=== PATIENT | female | born 1995 | race Caucasian/White ===

== ENCOUNTER 2016-10-24 19:13 | Emergency (ER) | payer OTHER ==
[~2016-10-24] VITALS: Ht 163.8 cm; Wt 62.9 kg
[2016-10-24 19:23] VITALS: TEMP 36.7; O2SAT 99; Ht 163.8 cm; Wt 62.9 kg
[2016-10-24 20:03] LABS: BASO % 0.2 %; BASO ABS # 0.02 K/uL (0-0.2); COMPLETE YES; EOS % 1.8 %; IG% 0.2 %; LYMPH % 27.4 %; LYMPH ABS # 2.33 K/uL (1.2-3.4); MEAN CELL VOLUME 84.7 fL (80-100); MEAN CORPUSCULAR HEMOGLOBIN 29.5 pg (25-34); MEAN CORPUSCULAR HGB CONC 34.9 g/dl (32-36); MEAN PLATELET VOLUME 9.6 fL (7.4-10.4); MONO % 5.1 %; NEUT % 65.3 %; PLATELET COUNT 281 K/uL (130-400); RED BLOOD COUNT 4.84 M/uL (4.2-5.4); WHITE BLOOD COUNT 8.49 K/uL (4.8-10.8)
--- NOTE | 2016-10-24 20:17 | DIAGNOSTIC IMAGING REPORT ---
HEAD CT NONCONTRAST CT DOSE: 1151.75 mGy.cm HISTORY: Headache seizure TECHNIQUE: Multiaxial CT images of the head were performed without the use of intravenous contrast. Comparison: None. Findings: The paranasal sinuses and mastoid air cells are clear. The calvarium and skull base are intact. The ventricles and sulci are within normal limits. There is no mass, hematoma, midline shift, or acute infarct. Impression: No acute intracranial abnormality. Electronically signed by: Tray Barber M.D. 10/24/2016 8:16 PM Dictated Date/Time: 10/24/2016 8:15 PM
[2016-10-24 20:24] LABS: URINE APPEARANCE CLEAR (CLEAR); URINE BILIRUBIN NEG (NEG); URINE COLOR YELLOW; URINE EPITHELIAL CELL AUTO >30 /lpf (0-5); URINE NITRITE NEG (NEG); URINE SPECIFIC GRAVITY 1.015 (1.000-1.030); UROBILINOGEN NEG (NEG); ZZUR CULT IF INDIC CLEAN CATCH YES
[2016-10-24 20:24] LABS: BUN/CREATININE RATIO 20.8 (10-20); CREATININE 0.78 mg/dl (0.60-1.20); POTASSIUM 3.8 mmol/L (3.5-5.1)
[2016-10-24 20:27] LABS: MANUAL MICROSCOPIC REQUIRED? NO; REVIEW REQ? NO
--- NOTE | 2016-10-24 21:13 | EMERGENCY ROOM VISIT NOTE ---
History Report prepared by Rob: Flor Rainey Under the Supervision of: Dr. Nick Peralta M.D. First contact with patient: 21:00 Chief Complaint: SEIZURE Stated Complaint: SEIZURE Nursing Triage Summary: pt was exercising at the fitness center on campus. per EMS a bystander witnessed pt have a siezure, lasting about 1 minute. pt was post ictal for EMS. pt arrives alert, oriented. pt reports seizure 1 year ago but has had no follow up since that time. pt takes no medications. pt reports she felt dizzy and if the room was spinning just prior to episode. pt did not hit her head. per EMS pt was lying on the floor doing exercises when seizure happened. History of Present Illness The patient is a 21 year old female who presents to the Emergency Room with complaints of sudden seizure like activity that occurred prior to arrival. She currently rates her discomfort as a 1/10 in severity. The patient states that throughout the last week she didn't sleep much, noting that this weekend she felt fatigued so she slept a lot. She states that she has a history of a seizure in the past, but states that she never had follow up after the incident. The patient states that today she was at the gym working out when she started to feel sick, nauseous, and dizzy. She states that she didn't feel right so she sat down at the machine. The patient states that next thing she new someone was trying to assist her. She states that she was post ictal after the incident. The patient denies any chest pain or shortness of breath prior to the incident. She denies losing any control of her bowel or bladder and denies biting her tongue. The patient states that she ate normally today, but states that she is hungry now. Source of History: patient, friend Onset: prior to arrival Position: other (global) Symptom Intensity: 1/10 Quality: other (seizure like activity) Timing: other (sudden) Associated Symptoms: + nausea, No SOB, No chest pain Note: Associated Symptoms: post ictal, dizziness Review of Systems See HPI for pertinent positives & negatives. A total of 10 systems reviewed and were otherwise negative. Past Medical & Surgical Medical Problems: (1) Seizure Old medical records were attempted to be reviewed but there are no old records at this hospital. Nurse's notes were reviewed and I agree with. Family History no pertinent family history stated. Social History Smoking Status: Current Some Day Smoker Drug Use: none Marital Status: single Occupation Status: [employer] student Current/Historical Medications No Active Prescriptions or Reported Meds Allergies Coded Allergies: No Known Allergies (Unverified , 10/24/16) Physical Exam Vital Signs Date Time Temp Pulse Resp B/P Pulse Ox O2 Delivery O2 Flow Rate FiO2 10/24/16 21:44 75 18 107/62 99 10/24/16 20:13 86 20 107/69 100 Room Air 10/24/16 19:27 81 10/24/16 19:23 36.7 78 21 105/58 100 Room Air 10/24/16 19:23 99 Room Air Physical Exam General: Well developed well nourished, non-ill appearing young female in no acute distress, breathing comfortably on room air. Normal speech HEENT: Normal cephalic atraumatic. Pupils are equal round and reactive to light. No nystagmus. Extraocular movements are intact. Oropharynx is pink with moist mucous membranes. No swelling of the mouth lips or tongue. Neck: Supple with a midline trachea. No meningeal signs or stiffness, no JVD or bruits. No Stridor. Chest: Clear to auscultation bilaterally. No wheezes or rhonchi. No increased work of breathing. Heart: regular rate and rhythm. Abdomen: Soft nontender, nondistended without rebound guarding or rigidity. Extremities: No cyanosis clubbing or edema. No calf tenderness or assymetry Spine/Back. Non tender to palpation. No CVA tenderness Skin: Good turgor without rashes. Neurologic exam: Cranial nerves two through 12 are intact. Motor and sensation are intact and symmetrical throughout. No tremor. Medical Decision & Procedures ER Provider Diagnostic Interpretation: CT results as stated below per my review and radiologist interpretation: HEAD CT NONCONTRAST CT DOSE: 1151.75 mGy.cm HISTORY: Headache seizure TECHNIQUE: Multiaxial CT images of the head were performed without the use of intravenous contrast. Comparison: None. Findings: The paranasal sinuses and mastoid air cells are clear. The calvarium and skull base are intact. The ventricles and sulci are within normal limits. There is no mass, hematoma, midline shift, or acute infarct. Impression: No acute intracranial abnormality. Electronically signed by: Tray Barber M.D. 10/24/2016 8:16 PM Dictated Date/Time: 10/24/2016 8:15 PM Laboratory Results 10/24/16 19:45 Red Blood Count 4.84, Mean Corpuscular Volume 84.7, Mean Corpuscular Hemoglobin 29.5, Mean Corpuscular Hemoglobin Concent 34.9, Mean Platelet Volume 9.6, Neutrophils (%) (Auto) 65.3, Lymphocytes (%) (Auto) 27.4, Monocytes (%) (Auto) 5.1, Eosinophils (%) (Auto) 1.8, Basophils (%) (Auto) 0.2, Neutrophils # (Auto) 5.54, Lymphocytes # (Auto) 2.33, Monocytes # (Auto) 0.43, Eosinophils # (Auto) 0.15, Basophils # (Auto) 0.02 10/24/16 19:45 Test 10/24/16 19:43 10/24/16 19:45 Urine Color YELLOW Urine Appearance CLEAR (CLEAR) Urine pH 8.0 (4.5-7.5) Urine Specific [place] 1.015 (1.000-1.030) Urine Protein NEG (NEG) Urine Glucose (UA) NEG (NEG) Urine Ketones NEG (NEG) Urine Occult Blood NEG (NEG) Urine Nitrite NEG (NEG) Urine Bilirubin NEG (NEG) Urine Urobilinogen NEG (NEG) Urine Leukocyte Esterase TRACE (NEG) Urine WBC (Auto) 1-5 /hpf (0-5) Urine RBC (Auto) 0-4 /hpf (0-4) Urine Hyaline Casts (Auto) 1-5 /lpf (0-5) Urine Epithelial Cells (Auto) >30 /lpf (0-5) Urine Bacteria (Auto) 1+ (NEG) Urine Test NEG (NEG) White Blood Count 8.49 K/uL (4.8-10.8) Red Blood Count 4.84 M/uL (4.2-5.4) Hemoglobin 14.3 g/dL (12.0-16.0) Hematocrit 41.0 % (37-47) Mean Corpuscular Volume 84.7 fL (80-100) Mean Corpuscular Hemoglobin 29.5 pg (25-34) Mean Corpuscular Hemoglobin Concent 34.9 g/dl (32-36) Platelet Count 281 K/uL (130-400) Mean Platelet Volume 9.6 fL (7.4-10.4) Neutrophils (%) (Auto) 65.3 % Lymphocytes (%) (Auto) 27.4 % Monocytes (%) (Auto) 5.1 % Eosinophils (%) (Auto) 1.8 % Basophils (%) (Auto) 0.2 % Neutrophils # (Auto) 5.54 K/uL (1.4-6.5) Lymphocytes # (Auto) 2.33 K/uL (1.2-3.4) Monocytes # (Auto) 0.43 K/uL (0.11-0.59) Eosinophils # (Auto) 0.15 K/uL (0-0.5) Basophils # (Auto) 0.02 K/uL (0-0.2) RDW Standard Deviation 38.1 fL (36.4-46.3) RDW Coefficient of Variation 12.3 % (11.5-14.5) Immature Granulocyte % (Auto) 0.2 % Immature Granulocyte # (Auto) 0.02 K/uL (0.00-0.02) Anion Gap 10.0 mmol/L (3-11) Est Creatinine Clear Calc Drug Dose 101.4 ml/min Estimated GFR () 126.8 Estimated GFR (Non- 109.4 BUN/Creatinine Ratio 20.8 (10-20) Calcium Level 9.0 mg/dl (8.5-10.1) Total Bilirubin 0.3 mg/dl (0.2-1) Aspartate Amino Transf (AST/SGOT) 15 U/L (15-37) Alanine Aminotransferase (ALT/SGPT) 14 U/L (12-78) Alkaline Phosphatase 49 U/L (45-117) Total Protein 8.6 gm/dl (6.4-8.2) Albumin 4.3 gm/dl (3.4-5.0) Globulin 4.3 gm/dl (2.5-4.0) Albumin/Globulin Ratio 1.0 (0.9-2) Laboratory studies as stated above per my review. ECG Indication: syncope, other (seizure) Rate (beats per minute): 77 Rhythm: normal sinus Findings: no acute ischemic change, other (sinus arrhythmia, no evidence of brugata syndrome, no prolonged QT) ED Course 2104: Past medical records reviewed. The patient was evaluated in room B9, and a complete history and physical examination were performed. 2121: I discussed the patients case with Dr. Santiago, Neurology. He does not believe that the patient needs to be started on medications at this time, but feels that the patient should be followed up as an outpatient. 2133: I reevaluated the patient and she is resting comfortably. I discussed the exam findings with her and I discussed the treatment plan. She verbalized complete understanding and agreement. She is ready to go home. Medical Decision Differentials include, but are not limited to; seizure, syncope, arrhythmia, electrolyte or metabolic abnormality. This patient comes in as described above. She has not slept much because she was studying and had a seizure like episode. She did feel dizzy prior to this I tried to sit down and either passed out or had a seizure. She may have been postictal. She looks great now she has normal neurologic exam. Multiple blood testing was obtained. She's no acute electrolyte or metabolic abnormalities. She has nothing to suggest infection or sepsis. A CAT scan of her head was unremarkable. EKG does not suggest acute coronary syndrome or arrhythmia. She is not . She feels good and would like to go home she had another similar episode about a year ago but talking to the patient, it was not clearly a seizure either. It may be that she does have a seizure disorder. I did discuss case with Dr. Santiago and he agrees to not start her medications at present but have further workup first. Our case management team to try to get her in with our seizure neurologist this week. They will call her. The patient does not drive. I told her not to do any activities where she could hurt herself or others of having a seizure and rest and drink plenty fluids. Ensure she sleeps well and return if : recurrence of symptoms, numbness or weakness, chest pain, shortness of breath, fever chills, any new problems or concerns. She was happy with the plan and discharged to home. Consults Time Called: [id number] Consulting Physician: Dr. Santiago, Neurology Returned Call: [phone] I discussed the patients case with Dr. Santiago, Neurology. He does not believe that the patient needs to be started on medications at this time, but feels that the patient should be followed up as an outpatient. Impression Primary Impression: Seizure Scribe Attestation The scribe's documentation has been prepared under my direction and personally reviewed by me in its entirety. I confirm that the note above accurately reflects all work, treatment, procedures, and medical decision making performed by me. Departure Information Dispostion Home / Self-Care Prescriptions No Active Prescriptions or Reported Meds Forms HOME CARE DOCUMENTATION FORM, IMPORTANT VISIT INFORMATION Patient Instructions My [facility] Additional Instructions Rest. Do not do any activities where he could hurt herself or others if you have a seizure. Up this week with Dr. Kwanurology Return to ER if: Worsening of symptoms, further recurrence of symptoms, chest pain, shortness breath, fever chills, numbness weakness, any new problems or concerns.
[2016-10-24 21:44] VITALS: BP 107/62; PULSE 75; O2SAT 99
--- NOTE | 2016-10-26 14:26 | Pharmacy Progress Note ---
ED Pharmacist Culture FollowUp Date of Service: Oct 26, 2016. Gamma Strep not Enterococcus growing from urine culture - likely contaminant. No intervention required. Case discussed w Dr. Robison.
== END 2016-10-24 21:45 | disposition home or self-care (01) ==
LOC: C.EDB 19:17
DX: G40.909 Epilepsy, unspecified, not intractable, without status epilepticus (principal); R53.83 Other fatigue; R11.0 Nausea; F17.200 Nicotine dependence, unspecified, uncomplicated